=== PATIENT | male | born 1990 | race Caucasian/White ===

== ENCOUNTER 2016-12-14 18:51 | Emergency (ER) | payer BC ==
[2016-12-14] MEDS ORDERED: HYDROcodone/Acetaminophen 10/325 mg Tablet ONE (19:39)
[2016-12-14] MEDS ORDERED: predniSONE 20 MG TAB ONE (19:40)
[2016-12-14] MEDS ORDERED: Bicillin LA 1.2 MILLION UNITS/2 ML SYRINGE ONE (19:40)
[2016-12-14] MEDS ORDERED: Benzonatate 100 MG CAP ONE (19:40)
== END 2016-12-14 20:10 | disposition home or self-care (01) ==
LOC: MADERS 18:51
DX: J02.9 Acute pharyngitis, unspecified (principal); F17.210 Nicotine dependence, cigarettes, uncomplicated; Z79.899 Other long term (current) drug therapy
CPT/HCPCS: 96372; J0561; J7506

== ENCOUNTER 2017-06-06 14:10 | Emergency (ER) | payer BC ==
[2017-06-06] MEDS ORDERED: Azithromycin 250 MG TAB ONE (14:40)
== END 2017-06-06 14:45 | disposition home or self-care (01) ==
LOC: MADERS 14:10
DX: J20.9 Acute bronchitis, unspecified (principal); F17.210 Nicotine dependence, cigarettes, uncomplicated; Z79.891 Long term (current) use of opiate analgesic
CPT/HCPCS: 99283

== ENCOUNTER 2018-03-31 17:46 | Emergency (ER) | payer SELFPAY ==
[~2018-03-31 17:46] MED LIST: Sodium Chloride 0.9% 1,000 ML BAG ONE
[2018-03-31 18:19] LABS: #Basophils 0.2 thou/uL (0.0-0.2); #Eosinphils 0.2 thou/uL (0.0-0.7); #Monocytes 1.1 thou/uL (0.11-0.59); #Neutrophils 9.7 thou/uL (1.40-6.50); %Basophils 1.3 % (0.0-1.0); %Eosinophils 1.3 % (0.0-10.0); %Lymphocytes 26.6 % (21.0-51.0); %Neutrophils 63.8 % (42.0-75.0); Hemoglobin 15.3 g/dL (14.0-18.0); Mean Corpuscular HGB CONC 33.9 g/dL (32.0-36.0); Mean Corpuscular Hemoglobin 29.9 pg (27.0-31.0); Mean Corpuscular Volume 88.4 fL (78.0-98.0); Mean Platelet Volume 6.6 fL (7.4-10.4); Platelet Count 320 thou/uL (130-400); Red Blood Cell (RBC) Count 5.09 mill/uL (4.70-6.10); White Blood Cell (WBC) Count 15.2 thou/uL (4.8-10.8)
[2018-03-31 18:32] LABS: ALT (SGPT) 35 U/L (8-55); AST (SGOT) 18 U/L (5-34); Albumin 4.3 g/dL (3.5-5.0); Alkaline Phosphatase 67 U/L (40-150); Anion Gap 13 mmol/L (10-20); BUN (Urea Nitrogen) 10 mg/dL (8.9-20.6); Bilirubin, Total 0.6 mg/dL (0.2-1.2); CK (CPK) 121 U/L (30-200); Calc. Creatinine Clearance 0 mL/min (70-130); Calcium 9.4 mg/dL (7.8-10.44); Carbon Dioxide 24 mmol/L (22-29); Chloride 107 mmol/L (98-107); Estimated GFR-MDRD Greater than 90; Glucose 89 mg/dL (70-105); Lipase 14 U/L (8-78); Potassium 3.9 mmol/L (3.5-5.1); Protein, Total 7.3 g/dL (6.0-8.3); Sodium 140 mmol/L (136-145)
[2018-03-31 18:35] LABS: CKMB 1.4 ng/mL (0-6.6); Troponin I Less than 0.010 ng/mL (< 0.028)
--- NOTE | 2018-03-31 20:18 | RAD ---
PA AND LATERAL OF THE CHEST: 03/31/18 INDICATION: History of chest pain. COMPARISON: Prior exam dated 01/15/11. IMPRESSION: No acute cardiopulmonary abnormality. The examination does not appear appreciably changed from the co mparison. POS: [facility]
== END 2018-03-31 19:33 | disposition home or self-care (01) ==
LOC: MADERS 17:46
DX: R07.89 Other chest pain (principal); F17.210 Nicotine dependence, cigarettes, uncomplicated
CPT/HCPCS: 71046; 80053; 82550; 82553; 83690; 84484; 85025; 85379; 93005; 94760; 96360; J7050

== ENCOUNTER 2018-10-12 20:03 | Emergency (ER) | payer SELFPAY ==
[2018-10-12] MEDS ORDERED: Oseltamivir 75 MG CAP ONE (20:36)
[2018-10-12] MEDS ORDERED: Acetaminophen 325 MG TAB ONE (20:36)
== END 2018-10-12 20:42 | disposition home or self-care (01) ==
LOC: MADERS 20:03
DX: J11.1 Influenza due to unidentified influenza virus with other respiratory manifestations (principal); F17.210 Nicotine dependence, cigarettes, uncomplicated
CPT/HCPCS: 99283

== ENCOUNTER 2018-12-12 18:47 | Emergency (ER) | payer SELFPAY ==
--- NOTE | 2018-12-12 19:35 | RAD ---
THREE VIEWS RIGHT FOOT 12/12/18 HISTORY: Right foot injury and pain. AP, lateral and oblique views right foot obtained. Three views right foot demonstrate no evidence of right foot fractures, subluxations, or bony lesions . IMPRESSION: Normal three views right foot. POS: [facility]
[2018-12-12] MEDS ORDERED: HYDROcodone/Acetaminophen 5/325 mg Tablet ONE (20:02)
== END 2018-12-12 20:06 | disposition home or self-care (01) ==
LOC: MADERS 18:47
DX: S90.31XA Contusion of right foot, initial encounter (principal); F17.210 Nicotine dependence, cigarettes, uncomplicated; X50.9XXA Other and unspecified overexertion or strenuous movements or postures, initial encounter; Y93.68 Activity, volleyball (beach) (court)

== ENCOUNTER 2019-07-25 06:55 | Emergency (ER) | payer SELFPAY ==
--- NOTE | 2019-07-25 08:35 | RAD ---
Left knee 4 views HISTORY: Left knee pain. FINDINGS: Joint spaces are preserved. No acute fracture, dislocation, or fluid distention of the supr apatellar bursa. IMPRESSION: No acute osseous abnormalities are demonstrated.
== END 2019-07-25 08:55 | disposition home or self-care (01) ==
LOC: MADERS 06:55
DX: M25.562 Pain in left knee (principal); F17.210 Nicotine dependence, cigarettes, uncomplicated

== ENCOUNTER 2019-08-24 09:28 | Emergency (ER) | payer SELFPAY ==
[2019-08-24] MEDS ORDERED: Metoclopramide HCl 10 MG/2 ML VIAL ONE (10:19)
[2019-08-24] MEDS ORDERED: Sodium Chloride 0.9% 1,000 ML ONE (10:19)
[2019-08-24] MEDS ORDERED: Ketorolac Tromethamine 30 MG/ML VIAL ONE (10:19)
[2019-08-24] MEDS ORDERED: diphenhydrAMINE 50 MG/ML VIAL ONE (10:19)
== END 2019-08-24 11:27 | disposition home or self-care (01) ==
LOC: MADERS 09:28
DX: G43.909 Migraine, unspecified, not intractable, without status migrainosus (principal); F17.210 Nicotine dependence, cigarettes, uncomplicated
CPT/HCPCS: 96374; 96375; J1200; J1885; J2765; J7050

== ENCOUNTER 2021-12-24 09:50 | Emergency (ER) | payer SELFPAY ==
[2021-12-24 10:58] LABS: #Basophils 0.1 thou/uL (0.0-0.2); #Eosinphils 0.1 thou/uL (0.0-0.7); #Lymphocytes 2.8 thou/uL (1.20-3.40); #Monocytes 0.7 thou/uL (0.11-0.59); %Eosinophils 0.8 % (0.0-10.0); %Lymphocytes 24.2 % (21.0-51.0); %Monocytes 6.2 % (0.0-10.0); %Neutrophils 67.8 % (42.0-75.0); Hemoglobin 15.4 g/dL (14.0-18.0); Mean Corpuscular Hemoglobin 29.7 pg (27.0-31.0); Mean Corpuscular Volume 90.1 fL (78.0-98.0); Mean Platelet Volume 7.8 fL (7.4-10.4); Platelet Count 347 thou/uL (130-400); RBC Distribution Width 11.1 % (11.5-14.5); Red Blood Cell (RBC) Count 5.18 mill/uL (4.70-6.10); White Blood Cell (WBC) Count 11.7 thou/uL (4.8-10.8)
[2021-12-24 11:17] LABS: ALT (SGPT) 26 U/L (8-55); AST (SGOT) 19 U/L (5-34); Albumin 4.4 g/dL (3.5-5.0); Alkaline Phosphatase 62 U/L (40-110); Anion Gap 15 mmol/L (10-20); BUN (Urea Nitrogen) 10 mg/dL (8.9-20.6); Bilirubin, Total 0.8 mg/dL (0.2-1.2); Calc. Creatinine Clearance 0 mL/min (70-130); Calcium 9.6 mg/dL (7.8-10.44); Carbon Dioxide 25 mmol/L (22-29); Chloride 102 mmol/L (98-107); Globulin 3.5 g/dL (2.4-3.5); Glucose 87 mg/dL (70-105); Lipase 13 U/L (8-78); Magnesium 2.3 mg/dL (1.6-2.6); Potassium 4.3 mmol/L (3.5-5.1); Protein, Total 7.9 g/dL (6.0-8.3); Sodium 138 mmol/L (136-145)
[2021-12-24] MEDS ORDERED: Pantoprazole 40 MG VIAL ONE (11:17)
== END 2021-12-24 11:50 | disposition home or self-care (01) ==
LOC: MADERS 09:50
DX: K29.00 Acute gastritis without bleeding (principal); F17.210 Nicotine dependence, cigarettes, uncomplicated
CPT/HCPCS: 80053; 83690; 83735; 84484; 85025; 93005; 94760; 96361; 96374; C9113; J7050

== ENCOUNTER 2025-05-13 12:24 | Emergency (ER) | payer OTHER ==
[2025-05-13] MEDS ORDERED: Ondansetron PF 4 MG/2 ML Vial ONE (12:46)
[2025-05-13 12:59] LABS: Hematocrit 51.3 % (42.0-52.0); Hemoglobin 17.4 g/dL (14.0-18.0); Mean Corpuscular Hemoglobin 30.2 pg (27.0-31.0); Mean Corpuscular Volume 88.9 fl (78.0-98.0); Platelet Count 454 10x3/uL (130-400); Red Blood Cell (RBC) Count 5.76 mill/uL (4.70-6.10); White Blood Cell (WBC) Count 20.1 10x3/uL (4.8-10.8)
[2025-05-13] MEDS ORDERED: Acetaminophen 500 MG TAB ONE (13:02)
[2025-05-13 13:09] LABS: MDiff Complete? YES; Manual Diff?? YES
[2025-05-13 13:10] LABS: Platelet Adequacy Comment Appears Increased
[2025-05-13 13:11] LABS: ALT (SGPT) 61 U/L (Less than 45); AST (SGOT) 31 U/L (11-34); Albumin 4.6 g/dL (3.1-4.5); Alkaline Phosphatase 51 U/L (40-110); Anion Gap 20 mmol/L (10-20); BUN (Urea Nitrogen) 12 mg/dL (8.9-20.6); Bilirubin, Total 0.8 mg/dL (0.3-1.2); Calc. Creatinine Clearance 0 mL/min (70-130); Calcium 9.9 mg/dL (7.8-10.44); Carbon Dioxide 16 mmol/L (22-29); Chloride 106 mmol/L (98-107); Globulin 4.0 g/dL (2.4-3.5); Glucose 149 mg/dL (70-105); Lipase 27 U/L (8-78); Magnesium 1.9 mg/dL (1.6-2.6); Potassium 4.1 mmol/L (3.5-5.1); Sodium 138 mmol/L (136-145); Troponin I Less than 0.010 ng/mL (< 0.028)
[2025-05-13 13:44] LABS: Glucose, Urine (Dipstick) Negative (Negative); Leukocyte Negative (Negative); Protein, Urine (Dipstick) 100 mg/dL (Neg-Trace); Specific Gravity, Urine 1.025 (1.005-1.030)
[2025-05-13 13:53] LABS: Bacteria/HPF Rare-Few HPF (None Seen); CAUTI Indications for Culture Dysuria,urgency,freq; Cocaine Metabolite Screen Negative (Negative); Mucous/LPF 4+ LPF (<2+); RBC/HPF None Seen HPF (0-3); THC/Cannabinoid Screen Negative (Negative); Tricyclic Screen Negative (Negative); WBC/HPF None Seen HPF (0-3)
[2025-05-13 13:54] LABS: Urine Culture Reflex No No
== END 2025-05-13 15:31 | disposition home or self-care (01) ==
LOC: MADERS 12:24
DX: E86.0 Dehydration (principal); R25.2 Cramp and spasm; R00.0 Tachycardia, unspecified; K21.9 Gastro-esophageal reflux disease without esophagitis; G43.909 Migraine, unspecified, not intractable, without status migrainosus; F17.290 Nicotine dependence, other tobacco product, uncomplicated; G47.00 Insomnia, unspecified
CPT/HCPCS: 36415; 80053; 80306; 81001; 83605; 83690; 83735; 83880; 84484; 85025; 87400; 87426; 94760; J2405; J7030